=== PATIENT | female | born 1945 | race Two or more races ===

== ENCOUNTER 2018-06-23 17:18 | Emergency (ER) | payer MEDICARE, OTHER ==
[~2018-06-23] VITALS: Ht 162.6 cm; Wt 98.0 kg
[~2018-06-23 17:18] MED LIST: ATOR40TA PO; BENA40TA67 PO; DIGO125T PO; METF-440 PO; OMEP20CA4 PO; RIVA10TA PO; SPIR25TA PO
[2018-06-23] MEDS ORDERED: ALBUTEROL FS 2.5 MG/3 ML VIAL.NEB ONE (18:27)
[2018-06-23] MEDS ORDERED: IPRATROPIUM NEB FS 0.5 MG/2.5 ML AMPUL.NEB ONE (18:27)
[2018-06-23] MEDS ORDERED: predniSONE 20 MG TABLET PO ONE (18:30)
[2018-06-23] MEDS ORDERED: IPRATROPIUM NEB FS 0.5 MG/2.5 ML AMPUL.NEB NEB ONE (18:30)
[2018-06-23] MEDS ORDERED: ALBUTEROL FS 2.5 MG/3 ML VIAL.NEB CONTNEB ONE (18:30)
--- NOTE | 2018-06-23 18:30 | NUR ---
C/O COUGH WITH CONGESTION "FLU LIKE SYMPTOMS" X 4 DAYS, PATIENT A/OX4, PATIENT VERBALIZED HAVING DIFFICULTY BREATHING. VSS. AWAITING FOR MD KERR.
[2018-06-23 18:41] LABS: BASOPHILS % (AUTO) 0.5 % (0.0-2.0); EOSINOPHILS % (AUTO) 0.7 % (0.0-6.0); HEMATOCRIT 42 % (33-45); LYMPHOCYTES # (AUTO) 0.8 /CMM (0.8-4.8); MEAN CORPUSCULAR HGB CONC 33 g/dl (31.0-36.0); MEAN CORPUSCULAR VOLUME 90 fL (82-100); MONOCYTES % (AUTO) 17.3 % (2.0-12.0); NEUTROPHILS % (AUTO) 67.5 % (43.0-81.0); PLATELET COUNT (AUTO) 164 /CMM (150-450); RED BLOOD CELL COUNT(AUTO) 4.67 MIL/uL (4.0-5.2)
[2018-06-23 18:43] LABS: CALCIUM, SERUM 9.6 mg/dL (8.5-10.1); CARBON DIOXIDE 27 mmol/L (21-32); CHLORIDE 101 mmol/L (98-107); CREATININE 0.8 mg/dL (0.6-1.3); GLUCOSE 162 mg/dL (74-106); POTASSIUM 3.8 mmol/L (3.5-5.1); SODIUM SERUM 136 mmol/L (136-145); UREA NITROGEN, BLOOD 14 mg/dL (7-18)
[2018-06-23] MEDS ORDERED: predniSONE 20 MG TABLET ONE (18:50)
[2018-06-23 18:56] LABS: B-TYPE NATRIURETIC PEPTIDE 963 PG/ML (0-125)
--- NOTE | 2018-06-23 19:29 | NUR ---
ENDORSED TO RICKY SAUL FOR CONTINUITY OF CARE.
--- NOTE | 2018-06-23 19:55 | NUR ---
Patient discharged to home in stable condition. Written and verbal after care instructions given. Patient verbalizes understanding of instruction.
[2018-06-23 19:57] VITALS: BP 129/71
== END 2018-06-23 19:59 | disposition home or self-care (01) ==
LOC: ER 17:18
DX: J20.9 Acute bronchitis, unspecified (principal); I10 Essential (primary) hypertension; R09.81 Nasal congestion; E11.9 Type 2 diabetes mellitus without complications; E78.5 Hyperlipidemia, unspecified; I48.91 Unspecified atrial fibrillation; E78.00 Pure hypercholesterolemia, unspecified; Z95.0 Presence of cardiac pacemaker; Z90.710 Acquired absence of both cervix and uterus
CPT/HCPCS: 36415; 71045; 80048; 83880; 84484; 85025; 87804 ×2; 93005; 99284; A4606; J7512; 87400

== ENCOUNTER 2018-10-12 13:43 | Outpatient (CLI) | payer MEDICARE, OTHER ==
[2018-10-12 14:19] LABS: ABG BASE EXCESS 0.4 mmol/L; ABG OXYGEN SATURATION 94.3 % (92.0-98.5); ABG PCO2 39.9 mmHg (35.0-45.0); ABG PH 7.414 (7.350-7.450); ABG PO2 73.2 mmHg (75.0-100.0); AaDO2 28.8 mmHg; COHb 0.7 % (0.5-1.5); MetHb 0.6 % (0.0-1.5); O2Hb 93.1 % (94.0-97.0); SITE, ABG Left Radial; VENT MODE, BG ROOM AIR
== END 2018-10-12 23:59 | disposition home or self-care (01) ==
LOC: RT 13:43
PROVIDERS: ATTEND Internal Medicine Pulmonary Disease
DX: R06.02 Shortness of breath (principal); I11.0 Hypertensive heart disease with heart failure; I50.9 Heart failure, unspecified; Z95.0 Presence of cardiac pacemaker; E11.9 Type 2 diabetes mellitus without complications
CPT/HCPCS: 36600